=== PATIENT | male | born 1975 | race Two or more races ===

== ENCOUNTER 2021-03-06 17:08 | Emergency (ER) | payer OTHER ==
[~2021-03-06] VITALS: Ht 172.7 cm; Wt 65.8 kg
[2021-03-06 17:20] VITALS: BP 140/87
[2021-03-06] MEDS ORDERED: IBUP-1955 PO (18:48)
--- NOTE | 2021-03-06 18:53 | NUR ---
Patient discharged to home in stable condition. Written and verbal after care instructions given. Patient verbalizes understanding of instruction.
== END 2021-03-06 18:53 | disposition home or self-care (01) ==
LOC: ER 17:16
DX: J02.9 Acute pharyngitis, unspecified (principal); F15.10 Other stimulant abuse, uncomplicated; Z79.899 Other long term (current) drug therapy
CPT/HCPCS: 86403-TC; 87070-TC

== ENCOUNTER 2021-03-06 19:29 | Emergency (ER) | payer OTHER ==
[~2021-03-06 19:29] MED LIST: IBUP-1955 PO
--- NOTE | 2021-03-06 20:44 | NUR ---
CALLED FOR TRIAGE, NOT IN WAITING ROOM.
--- NOTE | 2021-03-06 21:14 | NUR ---
called for triage, not in waiting room.
--- NOTE | 2021-03-06 21:50 | NUR ---
CALLED FOR TRIAGE, NOT IN WAITING ROOM.
== END 2021-03-06 21:52 | disposition left against medical advice (07) ==
LOC: ER 19:39
DX: Z53.21 Procedure and treatment not carried out due to patient leaving prior to being seen by health care provider (principal)

== ENCOUNTER 2021-03-07 20:22 | Emergency (ER) | payer OTHER ==
[~2021-03-07] VITALS: Ht 172.7 cm; Wt 65.8 kg
[2021-03-07 21:19] VITALS: BP 120/72
[2021-03-07] MEDS ORDERED: KETOROLAC TROMETHAMINE INJ 60 MG/2 ML VIAL IM ONE ×2 (21:43→22:00)
[2021-03-07] MEDS ORDERED: DEXAMETHASONE SOD PHOSPHATE 10 MG/ML VIAL ONE (21:43)
--- NOTE | 2021-03-07 21:51 | NUR ---
Patient given written and verbal discharge instructions. Patient verbalizes understanding of instructions. Patient is ambulatory with steady gait. Refuses offer of skilled nursing placement. Patient given list of available shelters in surrounding area.
[2021-03-07] MEDS ORDERED: DEXAMETHASONE SOD PHOSPHATE 4 MG/ML VIAL IM ONE (22:00)
== END 2021-03-07 21:51 | disposition home or self-care (01) ==
LOC: ER 20:22
DX: J02.9 Acute pharyngitis, unspecified (principal); Z76.5 Malingerer [conscious simulation]; Z59.00 Homelessness unspecified
CPT/HCPCS: 96372 ×2; 99284; J1100; J1885

== ENCOUNTER 2024-11-29 21:14 | Emergency (ER) | payer OTHER ==
[~2024-11-29] VITALS: Ht 180.3 cm; Wt 88.5 kg
[2024-11-29 21:19] VITALS: TEMP 98.6
[2024-11-29 22:33] LABS: PLATELET COUNT (AUTO) 352 K/uL (150-450); RED BLOOD CELL COUNT(AUTO) 4.12 MIL/uL (4.5-6.0); RED CELL DISTRIBUTION WIDTH 14.4 % (11.5-15.0); WHITE BLOOD COUNT (AUTO) 9.2 K/uL (4.3-11.0)
[2024-11-29 22:42] LABS: CALCIUM, SERUM 9.0 mg/dL (8.5-10.1); CREATININE 1.0 mg/dL (0.6-1.3); SODIUM SERUM 135 mmol/L (136-145); UREA NITROGEN, BLOOD 32 mg/dL (7-18)
[2024-11-29 22:48] LABS: ALCOHOL, BLOOD < 3 mg/dL (0-10); ASPARTATE AMINOTRANSFERASE 42 U/L (15-37); TOTAL PROTEIN, SERUM 7.7 g/dL (6.4-8.2)
[2024-11-30] MEDS ORDERED: LORAZEPAM 1 MG TABLET ONE ×2 (00:07→02:32)
[2024-11-30] MEDS: LORAZEPAM 1 MG TABLET PO ONE ×2 (00:10→02:38)
[2024-11-30 02:23] LABS: LYMPHOCYTES % (MANUAL) 18 % (16-48); MONOCYTES % (MANUAL) 15 % (0-11.0); NEUTROPHILS % (MANUAL) 67 (42-76); PLATELET ESTIMATE ADEQUATE
[2024-11-30 05:48] VITALS: BP 130/70; O2SAT 97
== END 2024-11-30 05:49 | disposition home or self-care (01) ==
LOC: ER 21:15
DX: R44.0 Auditory hallucinations (principal); F15.10 Other stimulant abuse, uncomplicated; F17.200 Nicotine dependence, unspecified, uncomplicated; M10.9 Gout, unspecified; Z60.2 Problems related to living alone; Z79.899 Other long term (current) drug therapy; Z20.822 Contact with and (suspected) exposure to COVID-19
CPT/HCPCS: 36415; 80048-TC; 80076-TC; 85025-TC; 85027-TC; 93971-TC; 98960; G0480